=== PATIENT | female | born 1930 | race Caucasian/White ===

== ENCOUNTER → 2016-11-04 | Outpatient (CLI) | payer MEDICARE, OTHER ==
[~2016-11-04] VITALS: Ht 147.3 cm; Wt 54.2 kg
[~2016-11-04] MED LIST: AMLO-512 PO; ASPI-1093 PO; ATOR40TA71 PO; FLUO-191 PO; FURO40 PO; GABA-529 PO; GABA-531 PO; IPRAHFA IH; LEVO150 PO; LORA1TAB3 PO; NAPR250T2 PO; OFLO5DRO21 AU; OMEP20 PO; OXYC1TAB PO; RANI150T7 PO; SERT100T12 PO; VALS320T2 PO
[2016-11-04 10:07] VITALS: BP 130/68
== END | disposition home or self-care (01) ==
LOC: SRCNTR 10:02
PROVIDERS: ATTEND Internal Medicine Cardiovascular Disease
DX: I10 Essential (primary) hypertension (principal); J44.9 Chronic obstructive pulmonary disease, unspecified; I35.0 Nonrheumatic aortic (valve) stenosis; M19.90 Unspecified osteoarthritis, unspecified site; E78.5 Hyperlipidemia, unspecified; E03.9 Hypothyroidism, unspecified; M79.604 Pain in right leg; M79.605 Pain in left leg
CPT/HCPCS: G0463

== ENCOUNTER → 2016-12-21 | Outpatient (CLI) | payer MEDICARE, OTHER ==
[~2016-12-21] VITALS: Ht 147.3 cm; Wt 57.0 kg
[~2016-12-21] MED LIST changes: +METO-323 PO; +NALO25TA PO; +PREG75 PO; +SERT50TA12 PO
[2016-12-21 10:32] VITALS: BP 103/57
== END | disposition home or self-care (01) ==
LOC: SRCNTR 10:24
PROVIDERS: ATTEND Internal Medicine Cardiovascular Disease
DX: J44.9 Chronic obstructive pulmonary disease, unspecified (principal); I10 Essential (primary) hypertension; E78.5 Hyperlipidemia, unspecified; E03.9 Hypothyroidism, unspecified; M19.90 Unspecified osteoarthritis, unspecified site; I35.0 Nonrheumatic aortic (valve) stenosis
CPT/HCPCS: G0463

== ENCOUNTER → 2017-02-24 | Outpatient (CLI) | payer MEDICARE, OTHER ==
[~2017-02-24] VITALS: Ht 147.3 cm; Wt 57.0 kg
[~2017-02-24] MED LIST changes: -GABA-529 PO; -OFLO5DRO21 AU
[2017-02-24 10:13] VITALS: BP 123/59
== END | disposition home or self-care (01) ==
LOC: SRCNTR 10:02
PROVIDERS: ATTEND Internal Medicine Cardiovascular Disease
DX: J44.9 Chronic obstructive pulmonary disease, unspecified (principal); I10 Essential (primary) hypertension; E03.9 Hypothyroidism, unspecified; E78.5 Hyperlipidemia, unspecified; M19.90 Unspecified osteoarthritis, unspecified site; I35.0 Nonrheumatic aortic (valve) stenosis; Z79.82 Long term (current) use of aspirin
CPT/HCPCS: G0463

== ENCOUNTER → 2017-06-05 | Outpatient (CLI) | payer MEDICARE, OTHER ==
[~2017-06-05] VITALS: Ht 147.3 cm; Wt 56.5 kg
[~2017-06-05] MED LIST changes: -ASPI-1093 PO; +ASPI-1182 PO; -METO-323 PO; +METO25XL PO; -NAPR250T2 PO; +NAPR250T4 PO; -SERT100T12 PO
[2017-06-05 10:25] VITALS: BP 121/68
== END | disposition home or self-care (01) ==
LOC: SRCNTR 10:13
PROVIDERS: ATTEND Internal Medicine Cardiovascular Disease
DX: J44.9 Chronic obstructive pulmonary disease, unspecified (principal); E03.9 Hypothyroidism, unspecified; E78.5 Hyperlipidemia, unspecified; I10 Essential (primary) hypertension; I35.0 Nonrheumatic aortic (valve) stenosis; Z79.82 Long term (current) use of aspirin
CPT/HCPCS: 93005; G0463

== ENCOUNTER → 2017-08-07 | Outpatient (CLI) | payer MEDICARE, OTHER ==
[~2017-08-07] VITALS: Ht 147.3 cm; Wt 56.5 kg
[~2017-08-07] MED LIST changes: -PREG75 PO
[2017-08-07 11:19] VITALS: BP 123/69
== END | disposition home or self-care (01) ==
LOC: SRCNTR 10:57
PROVIDERS: ATTEND Internal Medicine Cardiovascular Disease
DX: I10 Essential (primary) hypertension (principal); E03.9 Hypothyroidism, unspecified; E78.5 Hyperlipidemia, unspecified; J44.9 Chronic obstructive pulmonary disease, unspecified; I35.0 Nonrheumatic aortic (valve) stenosis; Z79.82 Long term (current) use of aspirin
CPT/HCPCS: G0463

== ENCOUNTER → 2017-10-18 | Outpatient (CLI) | payer MEDICARE, OTHER ==
[~2017-10-18] VITALS: Ht 147.3 cm; Wt 57.0 kg
[~2017-10-18] MED LIST changes: +LUBI24CA2 PO
[2017-10-18 10:04] VITALS: BP 129/64
== END | disposition home or self-care (01) ==
LOC: SRCNTR 10:03
PROVIDERS: ATTEND Internal Medicine Cardiovascular Disease
DX: I10 Essential (primary) hypertension (principal); E78.5 Hyperlipidemia, unspecified; J44.9 Chronic obstructive pulmonary disease, unspecified; I35.0 Nonrheumatic aortic (valve) stenosis; M19.90 Unspecified osteoarthritis, unspecified site; E03.9 Hypothyroidism, unspecified; R42 Dizziness and giddiness; Z79.82 Long term (current) use of aspirin
CPT/HCPCS: G0463

== ENCOUNTER → 2018-01-01 | Outpatient (CLI) | payer MEDICARE, OTHER ==
[~2018-01-01] VITALS: Ht 147.3 cm; Wt 59.0 kg
[~2018-01-01] MED LIST changes: -METO25XL PO; -NALO25TA PO; -NAPR250T4 PO
[2018-01-01 12:15] VITALS: BP 116/63
== END | disposition home or self-care (01) ==
LOC: SRCNTR 11:48
PROVIDERS: ATTEND Internal Medicine Cardiovascular Disease
DX: I10 Essential (primary) hypertension (principal); E78.5 Hyperlipidemia, unspecified; J44.9 Chronic obstructive pulmonary disease, unspecified; M19.90 Unspecified osteoarthritis, unspecified site; I35.0 Nonrheumatic aortic (valve) stenosis; Z79.82 Long term (current) use of aspirin
CPT/HCPCS: G0463

== ENCOUNTER → 2018-03-07 | Outpatient (CLI) | payer MEDICARE, OTHER ==
[~2018-03-07] VITALS: Ht 147.3 cm; Wt 58.8 kg
[~2018-03-07] MED LIST changes: +AMLO2.5T PO; +ATOR40TA28 PO; -ATOR40TA71 PO; -FLUO-191 PO; -FURO40 PO; -RANI150T7 PO
[2018-03-07 10:41] VITALS: BP 119/57
== END | disposition home or self-care (01) ==
LOC: SRCNTR 10:33
PROVIDERS: ATTEND Internal Medicine Cardiovascular Disease
DX: Z09 Encounter for follow-up examination after completed treatment for conditions other than malignant neoplasm (principal); J44.9 Chronic obstructive pulmonary disease, unspecified; I10 Essential (primary) hypertension; E78.5 Hyperlipidemia, unspecified; I35.0 Nonrheumatic aortic (valve) stenosis; R42 Dizziness and giddiness
CPT/HCPCS: G0463

== ENCOUNTER → 2018-09-19 | Outpatient (CLI) | payer MEDICARE, OTHER ==
[~2018-09-19] VITALS: Ht 147.3 cm; Wt 59.0 kg
[~2018-09-19] MED LIST changes: -AMLO-512 PO; -AMLO2.5T PO; +AMLO2.5T4 PO; -VALS320T2 PO
[2018-09-19 11:19] VITALS: BP 140/75
== END | disposition home or self-care (01) ==
LOC: SRCNTR 10:05
PROVIDERS: ATTEND Internal Medicine Cardiovascular Disease
DX: E78.5 Hyperlipidemia, unspecified (principal); I10 Essential (primary) hypertension; J44.9 Chronic obstructive pulmonary disease, unspecified
CPT/HCPCS: G0463